=== PATIENT | male | born 1970 | race Caucasian/White ===

== ENCOUNTER 2018-08-13 08:01 | Emergency (ER) | payer OTHER, MEDICAID ==
[2018-08-13] MEDS: SOD CHLORIDE 0.9% 1,000 ML IV (08:25)
[2018-08-13 08:34] LABS: ADD MAN DIFF? NO
[2018-08-13 08:37] LABS: BASOPHILS % 0.4 % (0.0-2.0); EOSINOPHILS # 0.3 10^3/ul (0.0-0.5); EOSINOPHILS % 3.6 % (0.0-7.0); HEMATOCRIT 42.2 % (42.0-52.0); HEMOGLOBIN 14.7 g/dl (14.0-18.0); LYMPHOCYTES # 3.3 10^3/ul (0.8-2.9); LYMPHOCYTES % 42.3 % (15.0-51.0); MEAN CORPUSCULAR HEMOGLOBIN 30.2 pg (29.0-33.0); MEAN CORPUSCULAR HGB CONC 34.8 g/dl (32.0-37.0); MEAN CORPUSCULAR VOLUME 86.7 fl (82.0-101.0); MEAN PLATELET VOLUME 11.6 fl (7.4-10.4); MONOCYTE # 0.6 10^3/ul (0.3-0.9); MONOCYTES % 7.3 % (0.0-11.0); NEUTROPHIL # 3.5 10^3/ul (1.6-7.5); NEUTROPHILS % 45.9 % (39.0-77.0); PLATELET COUNT 185 10^3/UL (140-415); RED BLOOD COUNT 4.87 10^6/ul (4.70-6.10); RED CELL DISTRIBUTION WIDTH 11.4 % (11.5-14.5)
[2018-08-13 08:37] LABS: WHITE BLOOD COUNT 7.7 10^3/ul (4.8-10.8)
[2018-08-13 09:00] LABS: PROTIME 14.3 Sec (11.9-14.9); PT RATIO 1.1
[2018-08-13 09:01] LABS: PARTIAL THROMBOPLASTIN TIME 31.3 Sec (23.0-35.0)
[2018-08-13 09:05] LABS: ALANINE AMINOTRANSFERASE 63 IU/L (13-69); ALBUMIN 4.2 g/dl (3.3-4.9); ALBUMIN/GLOBULIN RATIO 1.16; ALKALINE PHOSPHATASE 122 IU/L (42-121); ANION GAP 9 (5-13); ASPARTATE AMINO TRANSFERASE 43 IU/L (15-46); BILIRUBIN,INDIRECT 1.1 mg/dl (0-1.1); BILIRUBIN,TOTAL 1.1 mg/dl (0.2-1.3); BLOOD UREA NITROGEN 14 mg/dl (7-20); CALCIUM 8.6 mg/dl (8.4-10.2); CARBON DIOXIDE 23 mmol/L (21-31); CHLORIDE 103 mmol/L (97-110); CREATINE KINASE 91 IU/L (23-200); CREATININE 0.68 mg/dl (0.61-1.24); Estimated GFR > 60 mL/min (>60); GLUCOSE 269 mg/dl (70-220); SODIUM 135 mmol/L (135-144); TOTAL PROTEIN 7.8 g/dl (6.1-8.1)
[2018-08-13 09:07] LABS: ETHANOL < 10.0 mg/dl (0-0)
[2018-08-13 09:13] LABS: CK INDEX 1.6; CK-MB 1.42 ng/ml (0.0-2.4)
[2018-08-13] MEDS: ONDANSETRON 4 MG INJ IV (09:15)
[2018-08-13] MEDS: MECLIZINE 12.5 MG TAB PO (09:15)
[2018-08-13 09:18] LABS: B-TYPE NATRIURETIC PEPTIDE 132 PG/ML (0-125); TROPONIN-I < 0.012 ng/ml (0.000-0.120)
[2018-08-13] MEDS: MAGNESIUM SULFATE 2 GM, MULTIVITAMINS 10 ML, THIAMINE 100 MG, FOLIC ACID 1 MG in SOD CH... IV (09:45)
[2018-08-13] MEDS: LORAZEPAM 2 MG INJ IV (11:15)
== END 2018-08-13 13:45 | disposition home or self-care (01) ==
LOC: E/R 08:01
DX: E11.65 Type 2 diabetes mellitus with hyperglycemia (principal); I10 Essential (primary) hypertension; F10.230 Alcohol dependence with withdrawal, uncomplicated; Z79.4 Long term (current) use of insulin
CPT/HCPCS: 70450; 80053; 80307; 82550; 82553; 82962; 83880; 84484; 85025; 85610; 85730; 93005; 96374; 96375; 99285-25